=== PATIENT | male | born 1975 | race Caucasian/White ===

== ENCOUNTER 2017-09-05 20:16 | Emergency (ER) | payer OTHER, SELFPAY ==
[2017-09-05 20:19] VITALS: BP 183/115; PULSE 93; RESP 17; TEMP 37.2; O2SAT 96; BMI 40.6
--- NOTE | 2017-09-05 20:46 | ED.VISSUMM ---
- ER Visit Summary Date of Service: 09/05/17 Chief Complaint: Right elbow pain History of Present Illness: The patient is a 41 M presenting with right elbow pain. He states this has been bothering him for the past 4-5 weeks. He states approximately a year ago he had an injury at work and was treated for tendinitis. He states it improved. He states that over the past 4-5 weeks he has had a return of his symptoms. He does a lot of lifting and pulling at work. He denies any direct trauma to his elbow. He has been taking Advil at home. Denies other complaints. Physical Examination: Vitals are stable. Patient is afebrile. Alert no acute distress. HEENT exam is unremarkable. Lungs are clear and equal bilaterally. Heart is regular rate and rhythm. Extremities mild right elbow tenderness. No swelling, warmth or erythema. AFROM. NVID. Skin is warm and dry. No focal neurologic deficit. Remainder of exam is unremarkable. Emergency Department Course and Treatment: Patient is given Toradol IM. He is advised to continue NSAIDs at home. He is given information to follow-up with [facility]. Advised return ED if worsening complaints. Disposition: Discharged home Impression: Right elbow strain This note was generated with [employer] dictation software. It may contain incorrect words, spelling, and punctuation that were not noted in review of the chart prior to signing ED Disposition - Plan for ED Patient: Chief Complaint: Upper Extremity Injury Referrals: Care Physician,No Primary [Primary Care Provider] -
--- NOTE | 2017-09-05 20:49 | ED.DEP ---
ED Disposition - Plan for ED Patient: Chief Complaint: Upper Extremity Injury Instructions: ED Sprain Elbow Referrals: Care Physician,No Primary [Primary Care Provider] - Lou Giang DO [STAFF PHYSICIAN] - [facility] [GROUP OF PHYSICIANS] -
[2017-09-05] MEDS: Ketorolac 60 MG/2 ML Vial IM (21:17)
[2017-09-05 21:45] VITALS: BP 152/117; PULSE 81; RESP 16
== END 2017-09-05 21:46 | disposition home or self-care (01) ==
LOC: ED 20:51
PROVIDERS: Emergency Provider Emergency Medicine
DX: S56.911A Strain of unspecified muscles, fascia and tendons at forearm level, right arm, initial encounter (principal); X58.XXXA Exposure to other specified factors, initial encounter; Y93.9 Activity, unspecified; Y92.9 Unspecified place or not applicable
CPT/HCPCS: 96372; 99283

== ENCOUNTER → 2017-10-23 11:49 | Outpatient (CLI) | payer OTHER, SELFPAY ==
--- NOTE | 2017-10-23 12:12 | EKG12_ITS ---
Test Reason : PRE-OP Blood Pressure : / mmHG Vent. Rate : 072 BPM Atrial Rate : 072 BPM P-R Int : 152 ms QRS Dur : 092 ms QT Int : 400 ms P-R-T Axes : 046 -04 034 degrees QTc Int : 438 ms Normal sinus rhythm Normal ECG Confirmed by JUAN A TUCKER ([id number]), news editor SHANT SANDERS ([id number]) on 11/04/2017 4:50:30 PM Referred By: Harper Cramer Confirmed By:JUAN A TUCKER
[2017-10-23 13:05] LABS: Hematocrit 44.3 % (40-54); Hemoglobin 14.7 g/dl (13.0-16.5); Mean Corp Hgb Conc 33.2 g/gl (32-36); Mean Corpuscular Hgb 30.1 pg (27.0-32.0); Mean Corpuscular Volume 90.6 fL (80-94); Mean Platelet Vol. 10.4 fl (6.2-12.0); Platelet Count 275 K/mm3 (150-450); RBC Distribution Width CV 12.9 % (11.6-14.6); RBC Distribution Width SD 42.6 fl (35.1-43.9); Red Blood Count 4.89 M/mm3 (4.6-6.2); White Blood Count 7.6 K/mm3 (4.4-11.0)
[2017-10-23 13:08] LABS: Scan Indicated on CBC? Y/N NO
[2017-10-23 13:24] LABS: Anion Gap 9 (5-15); BUN 13 mg/dL (7-18); BUN/Creat Ratio 14.1 RATIO (10-20); Calcium,Total 8.5 mg/dL (8.5-10.1); Chloride 103 mmol/L (98-107); Creatinine, Serum 0.92 mg/dL (0.70-1.30); EST Glomerular Filtration Rate 95 mL/min (>60); Est Glom Filt Rate - Afr Amer 115 mL/min (>60); Glucose 147 mg/dL (74-106); Potassium 4.1 mmol/L (3.5-5.1); Sodium Level 141 mmol/L (136-145)
== END ==
PROVIDERS: Visit Provider Orthopaedic Surgery
DX: Z01.818 Encounter for other preprocedural examination (principal); I10 Essential (primary) hypertension
CPT/HCPCS: 36415; 80048; 85027; 93005

== ENCOUNTER → 2017-11-04 16:24 | Outpatient (CLI) | payer BC, SELFPAY ==
--- NOTE | 2017-11-01 14:24 | DEB_PTH ---
PATIENT: TESSIE MCGREGOR LOC: [facility]#:[id number] AGE/SX: 49/M ROOM: RE11/04/[address]: Iain Paul MD : 1975 BED: DIS: SPEC #: [id number] RECD: 11/04/17 15:25 STATUS: TRACI WARD #: [id number] ANDREW: 11/01/17 14:[address]: Iain Paul DEPT: SURGICAL PATHOLOGY RECD BY: Nixon Patel ENTERED: 11/05/17 08:23 SP TYPE: EYAD SILVA DR: No Primary Care Phys WAS Tissues: Elbow, NOS Procedures: Surgery Specimen Level III HEADER OPERATION: Lateral epicondylar release and debridement and repair, right elbow PRE-OP DIAGNOSIS: Lateral epicondyle, right elbow and chronic lateral epicondylitis TISSUE SUBMITTED: Aponeurosis of lateral epicondyle, right MICROSCOPIC DIAGNOSIS Aponeurosis of lateral epicondyle, right: Fragments of dense fibroconnective tissue with reactive changes. CANDELARIO:kam 11/06/17 MICROSCOPIC DESCRIPTION Slides are reviewed. GROSS DESCRIPTION Received is one container labeled with the patient's name and not further designated. The specimen consists of multiple pieces of bell soft tissue that in aggregate measure 1.5 x 1 x 0.2 cm. The entire specimen is submitted in one cassette. / CANDELARIO:kam 11/05/17 TC:5 CPT: 04607
--- NOTE | 2017-11-04 16:24 | DT_ITS ---
This patient was seen during an EMR downtime October 28, 2017 - November 04, 2017. This patient may have a combination of paper and electronic documentation or all paper documentation. All documentation is viewable within the e-chart portion of [facility] for each patient visit.
== END ==
PROVIDERS: Visit Provider Orthopaedic Surgery
DX: M77.11 Lateral epicondylitis, right elbow (principal)
CPT/HCPCS: 88304

== ENCOUNTER 2017-12-04 19:03 | Emergency (ER) | payer OTHER, BC, SELFPAY ==
[2017-12-04 19:03] VITALS: BP 158/101; PULSE 83; RESP 14; TEMP 36.9; O2SAT 98; BMI 41.5
--- NOTE | 2017-12-04 19:38 | ED.VISSUMM ---
- ER Visit Summary Date of Service: 12/04/17 Chief Complaint: Right index finger laceration History of Present Illness: The patient is a 42 M presenting with laceration to his right index finger. This occurred at work. He states his right index finger was accidentally cut with a piece of metal. His tetanus is up-to-date. Denies other injuries. Physical Examination: Vitals are stable. Patient is afebrile. Alert no acute distress. HEENT exam is unremarkable. Lungs are clear and equal bilaterally. Heart is regular rate and rhythm. Extremities 2 cm laceration to the right proximal, lateral index finger, tendon function is intact, normal cap refill Skin is warm and dry. No focal neurologic deficit. Remainder of exam is unremarkable. Emergency Department Course and Treatment: Laceration was repaired under sterile conditions. Irrigated with saline. Anesthetized with lidocaine. 4, 5-0 simple sutures were placed. Patient tolerated this well. Advised to follow-up with [facility]. Advised return to ED if worsening complaints. Disposition: Discharge home Impression: Right index finger laceration, laceration repair This note was generated with [employer] dictation software. It may contain incorrect words, spelling, and punctuation that were not noted in review of the chart prior to signing ED Disposition - Plan for ED Patient: Chief Complaint: Laceration Instructions: ED Laceration All Referrals: [facility] [GROUP OF PHYSICIANS] - Care Physician,No Primary [NON-STAFF] -
--- NOTE | 2017-12-04 21:15 | ED.DEP ---
ED Disposition - Plan for ED Patient: Chief Complaint: Laceration Instructions: ED Laceration All Referrals: Care Physician,No Primary [NON-STAFF] - [facility] [GROUP OF PHYSICIANS] -
[2017-12-04 21:27] VITALS: BP 173/98; PULSE 80; RESP 18; O2SAT 98
== END 2017-12-04 21:35 | disposition home or self-care (01) ==
PROVIDERS: Emergency Provider Emergency Medicine; Family Provider Nurse Practitioner; PCP Nurse Practitioner
DX: S61.210A Laceration without foreign body of right index finger without damage to nail, initial encounter (principal); W26.9XXA Contact with unspecified sharp object(s), initial encounter; Y93.89 Activity, other specified; Y92.89 Other specified places as the place of occurrence of the external cause; Y99.0 Civilian activity done for income or pay
CPT/HCPCS: 12001; 99282

== ENCOUNTER 2019-03-18 23:21 | Emergency (ER) | payer BC, SELFPAY ==
[2019-03-18 23:22] VITALS: BP 178/115; PULSE 79; RESP 16; TEMP 37.4; O2SAT 98; BMI 43.0
--- NOTE | 2019-03-18 23:31 | RAD_ITS ---
STUDY: X-RAY - LEFT ANKLE REASON FOR EXAM: Male, 43 years old. Pain. TECHNIQUE: 3 view(s) of the ankle. COMPARISON: None. FINDINGS: Normal visualized distal tibia and fibula. Normal medial and lateral malleoli. Normal tibiotalar articulation and ankle mortise. Normal visualized talus. There is os trigonum. There is plantar spur of the calcaneus. The visualized subtalar, talonavicular, calcaneocuboid and tarsal articulations are normal. There is no demonstrated fracture. The soft tissue structures are unremarkable. RAD/Ankle min 3 Views IMPRESSION: No acute fracture. Electronically Signed: Juan Lucio MD at 23:46 EDT , Service support ,
--- NOTE | 2019-03-18 23:53 | ED.DCSUM_ITS ---
History of Present Illness Chief Complaint: Lower Extremity Injury Detail of Chief Complaint: Left ankle injury Informant: Patient Onset: Today Current Severity: Mild Maximum Severity: Moderate Narrative: Patient presents for evaluation of left ankle injury. He states when he was leaving for work earlier today he rolled his left ankle on the edge of a curb. 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 He presents with continued pain and swelling to the lateral portion of his left ankle. Patient does have a history of hypertension. He states he has been out of his blood pressure medication for some time. He is switching pharmacy companies that supply his meds in 90-day increments. He is try to get back into his PCP to get a new prescription. Past Medical History - Allergies and Home Meds Allergies/Adverse Reactions: Allergies No Known Allergies Allergy (Verified 03/18/19 23:27) Primary Care Physician: Emily Marmolejo NP-C [Primary Care Provider] - Prior records reviewed: Yes Past Medical History: - - Reviewed Lives: Spouse/ Significant Other Smoking Status: Never smoker Review of Systems General: Denies: Chills, Fever Eyes: Denies: Visual changes - bilaterally ENT: Denies: Bilateral ear pain Cardiovascular: Denies: Chest pain Respiratory: Denies: Dyspnea Gastrointestinal: Denies: Abdominal pain Musculoskeletal: Reports: Extremity Pain - Lateral left ankle pain Skin: Denies: Rash, Wounds Neurological: Denies: Headache Physical Exam Vital Signs/Narrative: Vital Signs Temp Pulse Resp BP Pulse Ox 03/18/19 23:22 99.3 F H 79 16 178/115 H 98 Inital Vital Signs reviewed: Yes General: Well nourished, Well developed Head: Normocephalic ENT: Moist mucous membranes Cardiovascular: Regular rate, Regular rhythm Respiratory: No distress, CTA bilaterally Abdomen: Soft, Nontender Extremities: - - Mild tenderness palpation and edema of the lateral malleolus of the left ankle. No medial tenderness. No tenderness of the proximal fibula. Strong distal pulses and normal cap refill. Skin: Normal color Neurological: Alert, Oriented x3, Normal Strength, Normal Sensation Psychological: Normal affect Diagnostic/Tx/Re-eval Impressions Ankle X-Ray 03/18/19 23:31 IMPRESSION: No acute fracture. Electronically Signed: Juan Lucio MD at 23:46 EDT , Service support , 03/18/19 23:31 XRAY Ankle [Ankle min 3 Views] [RAD] Stat - Medical Decision Making Patient is given a dose of naproxen here for pain will be given an air splint. I will write the patient a 30-day supply of his blood pressure medication to cover him until he get back in to see his PCP for 90-day prescription. ED Disposition - Plan for ED Patient: Disposition: Home or Assisted Living Diagnosis: Ankle sprain, Hypertension Instructions: Sprain, Ankle, with X-Ray, HYPERTENSION, Established Prescriptions: Naproxen [Naprosyn] 500 mg PO BID PRN PRN #20 tablet PRN Reason: Pain Score 1-10/10 Valsartan 80 mg PO DAILY #30 tablet Referrals: Emily Marmolejo, TRAFFIC CONTROLLER CABLE-C [Primary Care Provider] - 1 Week
[2019-03-19] MEDS: Losartan Potassium 25 MG Tablet PO (00:05)
[2019-03-19] MEDS: Naproxen 500 MG Tablet PO (00:05)
[2019-03-19 00:15] VITALS: BP 163/105
== END 2019-03-19 00:16 | disposition home or self-care (01) ==
LOC: ED 03-19 00:08
PROVIDERS: Emergency Provider Emergency Medicine; Family Provider Nurse Practitioner; PCP Nurse Practitioner
DX: S99.912A Unspecified injury of left ankle, initial encounter (principal); X50.1XXA Overexertion from prolonged static or awkward postures, initial encounter; Y93.9 Activity, unspecified; Y92.480 Sidewalk as the place of occurrence of the external cause; Y99.9 Unspecified external cause status; I10 Essential (primary) hypertension
CPT/HCPCS: 73610; 99283

== ENCOUNTER 2021-02-07 19:38 | Emergency (ER) | payer OTHER, BC, SELFPAY ==
[2021-02-07 19:40] VITALS: BP 190/121; PULSE 93; RESP 18; TEMP 36.1; O2SAT 98; BMI 39.5
--- NOTE | 2021-02-07 20:40 | RAD_ITS ---
STUDY: X-RAY - LEFT RADIUS AND ULNA REASON FOR EXAM: Male, 45 years old. Pain TECHNIQUE: 2 view(s) of the forearm. COMPARISON: None. FINDINGS: There is no demonstrated soft tissue swelling. Normal visualized radius. Normal visualized ulna. RAD/Forearm 2 Views IMPRESSION: Normal x-ray examination of the radius and ulna. Electronically Signed: Sae Moura DO at 21:32 EDT Tel [phone], Service support ,
--- NOTE | 2021-02-07 20:58 | EX.ED.UPPERE ---
HPI History of Present Illness Chief Complaint: Upper Extremity Injury Detail of Chief Complaint: Pain to left forearm that started around 6:30 PM Informant: patient Narrative Narrative: Patient presents to the emergency department from work with complaint of pain to his left forearm. 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 Patient started having pain in the forearm with paresthesias in the fingertips of all the fingers. He is never had this happen before. Patient states the pain is intermittent and sharp. Currently rates it a 5 out of 10. He denies any direct trauma. He is never had this happen before. Patient has had prior carpal tunnel surgery on his right arm. Patient also states that he has a history of high blood pressure and does not take blood pressure medicine and has not for some time. Patient denies headache or chest pain or shortness of breath. Patient does not remember what blood pressure medicine he was on. PFSH PFS Home Medications naproxen 500 mg PO BID PRN PRN #20 tab 03/18/19 [Rx Last Taken Unknown] valsartan 80 mg PO DAILY #30 tab 03/18/19 [Rx Last Taken Unknown] amlodipine [Norvasc] 5 mg PO DAILY #30 tab 02/07/21 [Rx Last Taken Unknown] naproxen 500 mg PO BID #14 tab 02/07/21 [Rx Last Taken Unknown] Allergy/AdvReac Type Severity Reaction Status Date / Time No Known Allergies Allergy Verified 02/07/21 19:39 Social History Smoking Status: Never smoker ROS [facility] ED Constitutional Constitutional ED: Reports systems reviewed and no addt'l complaints, except as documented; Denies body ache(s), change in weight or chills Eyes Eyes: Denies acute decrease in peripheral vision, change in vision, double vision or loss of vision ENT ENT ED: Reports none; Denies ear pain, lip swelling, loss taste/smell, neck pain, otalgia or sore throat Cardiovascular Cardiovascular: Reports none; Denies abdominal pain, chest pain with activity, leg edema, lightheadedness, palpitations, rapid heart rate or syncope Respiratory/Chest Respiratory/Chest: Reports none; Denies change in mental status, dry cough, dyspnea, hemoptysis, shortness of breath at rest or shortness of breath with exertion Gastrointestinal Gastrointestinal: Reports none; Denies abdominal pain, change in stool character, diarrhea, hematemesis, hematochezia, melena, rectal bleeding or vomiting Genitourinary Genitourinary ED: Reports none; Denies abdominal discomfort, anuria, dysuria, genital pain or polyuria Musculoskeletal Musculoskeletal: Reports none and other Details: Left forearm pain ; Denies arthralgias, back pain, difficulty walking, extremity pain, muscle weakness or myalgias Integumentary Reports none; Denies abscess or rash Neurologic Neurologic: Reports none; Denies abnormal gait, confusion, focal weakness, frequent falls, headache(s), loss of vision, numbness, paresthesias, radicular pain, vertigo or weakness Psychiatric Psychiatric: Reports systems reviewed and no addt'l complaints, except as documented and none; Denies behavioral changes, confusion, difficulty concentrating, hallucinations, suicidal ideation, tactile hallucinations or visual hallucinations Endocrine Endocrinology: Denies none, cold intolerance, excessive sweating, fatigue or heat intolerance Hematologic/Lymphatic Hematologic/Lymphatic: Reports none; Denies anemia, easy bleeding or easy bruising Allergic/Immunologic Allergic/Immunologic ED: Denies as per HPI, none, lip swelling, mouth swelling, throat swelling, tongue swelling or hives EXAM Physical Exam Const Vital Signs: 02/07/21 19:40 Temperature 97.0 F L Temperature Source Temporal Pulse Rate 93 Respiratory Rate 18 Blood Pressure 190/121 H Blood Pressure Mean 144 Pulse Ox 98 Oxygen Delivery Method Room Air Positive well nourished and well developed General Appearance ED: well developed and NAD HEENT Reports TM's clear and moist mucous membranes normocephalic and atraumatic; Negative for trauma or tenderness Tympanic Membrane ED: Yes TM's clear Eyes PERRL and EOMs intact bilaterally General Eye ED: Negative for pale conjunctiva or scleral icterus Neck no lymphadenopathy, supple and no JVD General: Negative for tenderness Chest Wall inspection of chest normal and palpation of chest normal Chest: Negative for tenderness Resp normal respiratory effort and clear to auscultation bilaterally Effort and Inspection: Negative for respiratory distress or pain with movement Auscultation: Negative for rhonchi, wheezes or diminished lung sounds Cardio regular rate, regular rhythm, S1 normal heart sound, S2 normal heart sound and no murmurs Peripheral Pulses: pulses 2+ throughout GI normal to inspection, nondistended, normoactive bowel sounds, soft to palpation, non-tender, non-distended and no masses Back/Spine no CVA tenderness and no thoracic nor lumbar tenderness Extremity Extremity Narrative: Evaluation of the left forearm reveals no evidence of trauma. There is no ecchymosis or bruising or soft tissue swelling. Patient does have some tenderness to palpation over the musculature of the medial portion of the forearm proximally. Patient has normal pulses radial and ulnar. Patient has normal range of motion of all digits. Patient has normal strength. General Extremety ED: Negative for edema General Extremity: Negative for edema Neuro oriented x3, CN's II-XII intact bilaterally, no sensory deficits noted and gait normal Sensorium / Orientation: awake, alert, oriented to person, oriented to place and oriented to time Motor Exam: strength 5/5 throughout and strength abnormal Psych mental status grossly normal Skin no rashes or lesions noted and no wounds MDM MDM MDM Narrative Medical decision making narrative: Etiology of patient's pain unclear although I suspect may be from overuse injury and related to muscle strain of the forearm. Patient will be started on naproxen. I will start patient on Norvasc 5 mg daily and refer to primary care physician for follow-up regarding his blood pressures. Patient will be referred to corporate care regarding the forearms overuse injury and will be given work restrictions. Discharge Plan Triage Chief Complaint: Upper Extremity Injury ED Provider: Simón Watts Dx/Rx/DC Orders Clinical Impression: Forearm strain, Hypertension Instructions: Controlling High Blood Pressure, Blood Pressure Check Steps, ED Hypertension, Established, ED Muscle Strain, Extremity Prescriptions: New naproxen 500 MG tablet 500 mg PO BID Qty: 14 RF: 0 amlodipine [Norvasc] 5 mg tablet 5 mg PO DAILY Qty: 30 RF: 0 No Action naproxen 500 MG tablet 500 mg PO BID PRN PRN (Reason: Pain Score 1-10/10) Qty: 20 RF: 0 valsartan 80 MG tablet 80 mg PO DAILY Qty: 30 RF: 0 Primary Care Provider: Care Physician,No Primary Referrals: Corporate,Care [GROUP OF PHYSICIANS] - 3-5 Days Emily Marmolejo WORLD LANGUAGE TEACHER, WORLD LANGUAGE TEACHER-C [NON-STAFF] - 3-5 Days Disposition Disposition: Home, Self Care
[2021-02-07 21:49] VITALS: BP 185/114; PULSE 86; RESP 16; O2SAT 97
== END 2021-02-07 21:49 | disposition home or self-care (01) ==
PROVIDERS: Emergency Provider Emergency Medicine
DX: S56.912A Strain of unspecified muscles, fascia and tendons at forearm level, left arm, initial encounter (principal); I10 Essential (primary) hypertension; X50.3XXA Overexertion from repetitive movements, initial encounter; Y93.89 Activity, other specified; Y92.89 Other specified places as the place of occurrence of the external cause; Y99.0 Civilian activity done for income or pay
CPT/HCPCS: 73090; 99282

== ENCOUNTER 2023-02-28 06:54 | Emergency (ER) | payer SELFPAY ==
[2023-02-28 06:56] VITALS: BP 174/101; PULSE 79; RESP 18; TEMP 36.7; O2SAT 98; BMI 40.6
--- NOTE | 2023-02-28 07:06 | ED.VIS.BACK ---
HPI History of Present Illness Chief Complaint: Back [facility] Medical History (Updated 09/25/22 @ 12:46 by MANOJ Ma) Asthma HTN (hypertension) Left hand paresthesia Left hand paresthesia Left hand paresthesia Strain of left forearm Strain of left forearm Home Medications lisinopril 20 mg tablet 20 mg PO DAILY 02/28/23 [History Last Taken Unknown] oxycodone-acetaminophen 5 mg-325 mg tablet 1 tab PO Q6H 02/28/23 [History Last Taken Unknown] prednisone 50 mg tablet 50 mg PO DAILY #5 tabs 02/28/23 [Rx Last Taken Unknown] sumatriptan succinate 25 mg tablet 25 mg PO PRN 02/28/23 [History Last Taken Unknown] Allergy/AdvReac Type Severity Reaction Status Date / Time Penicillins Allergy Mild Rash Verified 02/28/23 07:07 insect venom Allergy Swelling Verified 02/28/23 07:07 Surgical History History of carpal tunnel release History of knee surgery S/P tendon repair Social History Smoking Status: Never smoker Smokeless tobacco user: snuff EXAM Physical Exam Const Vital Signs: 02/28/23 06:56 Temperature 98.0 F Temperature Source Oral Pulse Rate 79 Respiratory Rate 18 Blood Pressure 174/101 H Blood Pressure Mean 125 Pulse Ox 98 Oxygen Delivery Method Room Air [facility] MDM Narrative Medical decision making narrative: HISTORY OF PRESENT ILLNESS: 47-year-old male presents with back pain. Notes he has low back pain but does not radiate. He does not endorse any trauma. States he gets this occasionally flares up once or twice a year. Denies any inciting event that he is aware of. Patient denies any saddle anesthesia, urinary tension, bowel or bladder incontinence, lower extremity weakness, fever or IV drug use, no recent spinal manipulation or surgery, no recent urinary catheterization. REVIEW OF SYSTEMS: All other systems reviewed and are negative except as noted in the history of present illness. At least 10 review of systems reviewed and are negative except as noted in history of present illness. PHYSICAL EXAM: Nursing triage notes reviewed, Vital signs reviewed Constitutional: please see mdm Lungs: Clear to auscultation, No wheezing or rales. No increased work of breathing, no conversational dyspnea, no accessory muscle use, no nasal flaring. No respiratory distress noted Heart: Regular rate and rhythm, No murmurs, No rubs and No gallops, 2+ distal pulses (radial, femoral, posterior tibial) in all extremities : No CVAT Back: No midline step-offs or deformities Neuro: Intact sensation L1-S1 dermatomal distributions. Intact 5/5 strength in hip flexion (T12-L3). Knee extension (L2-L4). Ankle dorsiflexion (L4-L5). Ankle plantar flexion (S1). Great toe extension (L5). 2+ patellar and Achilles DTRs. Skin: No rash or lesions noted MEDICAL DECISION MAKING: Chief Complaint: Back pain External records reviewed: Imaging studies reviewed: No recent Morales imaging of the axial skeleton Factors affecting care: Hypertension Social determinants of health: No IV drug use History obtained from others: none Consults: none ALL IMAGES (IF OBTAINED) HAVE BEEN PERSONALLY REVIEWED AND INTERPRETED BY MYSELF. MDM Narrative: Patient was initially mildly hypertensive otherwise hemodynamically stable, afebrile, nontoxic-appearing. I considered the following differential diagnosis: Musculoskeletal back pain, space-occupying lesion of the spinal (epidural abscess, epidural hematoma), cauda equina, conus medullaris, fracture dislocation, AAA, nephrolithiasis, pyelonephritis, aortic dissection The patient presented complaining of back pain. There was no history of recent fall or trauma. There was no evidence to support genitourinary etiology. There is also no evidence to suggest vascular pathology such as AAA dissection. No fevers or other evidence to suspect infectious processes, abscess, osteomyelitis etc. The patient?s neurological exam is normal with normal motor and sensory. There is no saddle paresthesias reported and no bowel or bladder incontinence or retention. I suspect the pain is mechanical in nature. Clinical suspicion, plan of care and management was discussed with the patient. The patient was instructed to follow up with their health care provider. The patient was also instructed to return if the pain worsened, changed, or developed weakness or bowel or bladder trouble. The patient agreed with plan. I completed a structured, evidence-based clinical evaluation to screen for acute non-traumatic spinal emergencies. The patient has a normal detailed neurologic exam and red flag historical factors were negative. The evidence indicates that the patient is very low risk for an acute spinal emergency and this is consistent with my clinical intuition. The risk of further workup is higher than the likelihood of the patient having a spinal epidural abscess or other dangerous emergency spinal condition. It is, therefore, in the patient?s best interest not to do additional emergent testing at this time. Shared Decision-Making I have discussed with the patient my clinical impression and the result of an evidence-based clinical evaluation to screen for spinal epidural abscess and other spinal emergencies, as well as the risk of further testing and hospitalization. The evidence shows that the risk for an acute spinal emergency is less than 1%. Although the risk of an acute spinal emergency has not been completely eliminated, the risks of further testing likely exceed any potential benefit, and the patient agrees with not pursuing further emergent evaluation for causes of back pain at this time. The patient and/or family, caregivers express understanding. The patient and/or family, caregivers agrees with the plan. Total critical care time today provided was at least 0 minutes. This excludes separately billable procedures. Critical care time (if documented) is secondary to the patient having high probability of clinically significant/life threatening deterioration in the patient's condition which required my urgent intervention. Impression: 1. Back pain Disposition: Discharge Owen Patterson DO Discharge Plan Triage Chief Complaint: Back ED Provider: Owen Patterson Dx/Rx/DC Orders Instructions: ED Back Exercises, Lumbar, ED Back Pain (Acute or Chronic) Prescriptions: New prednisone 50 mg tablet 50 mg PO DAILY Qty: 5 0RF No Action lisinopril 20 mg tablet 20 mg PO DAILY Patient Comments: TAKE 1 TABLET BY MOUTH ONCE DAILY sumatriptan succinate 25 mg tablet 25 mg PO PRN Patient Comments: TAKE 1 TABLET BY MOUTH NEEDED AT THE FIRST SIGN OF A HEADACHE. MAY REPEAT ONCE IN 2 HOURS IF NO RELIEF oxycodone-acetaminophen 5-325 mg tablet 1 tab PO Q6H Stand Alone Forms: ED Work / School Excuse Primary Care Provider: Care Physician,No Primary Referrals: Madi Almonte MD [Med Staff - Active Staff] - Activity Restrictions/Additional Instructions: Thank you for trusting us with your care today! Please take Tylenol (2 pills, 650 mg), ibuprofen (2 pills, 400 mg) every 6 hours as needed for pain and fever control. Please begin taking prednisone as prescribed. Please go to your local pharmacy or drugstore and obtain Salonpas lidocaine patches and apply these topically for additional pain relief. Please return to the emergency department if your symptoms change or worsen. Specifically if you develop bowel or bladder incontinence, urinary retention, loss of sensation on your private parts, loss of ability to move or feel your legs. Please follow with your primary care physician for further outpatient evaluation and management. Disposition Disposition: Home, Self Care
[2023-02-28] MEDS: predniSONE 20 MG Tablet 40 MG PO (07:47)
[2023-02-28] MEDS: Ibuprofen 200 MG Tablet 400 MG PO (07:47)
[2023-02-28] MEDS: Oxycodone/Apap 5/325 Tablet PO (07:48)
[2023-02-28] MEDS: Lidocaine 5% Patch 1 PATCH TOPICAL (07:48)
[2023-02-28 07:58] VITALS: BP 139/88; PULSE 72; RESP 16; O2SAT 99
== END 2023-02-28 07:59 | disposition home or self-care (01) ==
PROVIDERS: Emergency Provider Emergency Medicine; Visit Provider Emergency Medicine
DX: M54.50 Low back pain, unspecified (principal); I10 Essential (primary) hypertension; J45.909 Unspecified asthma, uncomplicated; Z79.899 Other long term (current) drug therapy; Z79.52 Long term (current) use of systemic steroids
CPT/HCPCS: 99283

== ENCOUNTER 2024-03-27 18:46 | Emergency (ER) | payer BC, SELFPAY ==
[2024-03-27 18:47] VITALS: BP 173/107; PULSE 89; RESP 18; TEMP 36.4; O2SAT 97; BMI 39.9
--- NOTE | 2024-03-27 18:50 | RAD_ITS ---
STUDY: X-RAY - LEFT WRIST REASON FOR EXAM: Male, 48 years old. Fall TECHNIQUE: 3 view(s) of the wrist were obtained. COMPARISON: None. FINDINGS: Normal visualized distal radius and ulna. Normal radiocarpal articulation. Normal distal radioulnar articulation. Normal carpal bones. Normal carpal articulations. Normal carpometacarpal articulation of the thumb. Normal second through fifth carpometacarpal articulations. Normal visualized metacarpal bones. The soft tissue structures are unremarkable. RAD/Wrist min 3 Views IMPRESSION: Normal x-ray examination of the wrist. Electronically Signed: Ignacio Bae MD at 20:14 EDT ,
--- NOTE | 2024-03-27 19:00 | RAD_ITS ---
STUDY: X-RAY - RIGHT ANKLE REASON FOR EXAM: Male, 48 years old. Fall TECHNIQUE: 3 view(s) of the ankle. COMPARISON: None. FINDINGS: Normal visualized distal tibia and fibula. Normal medial and lateral malleoli. Normal tibiotalar articulation and ankle mortise. Normal visualized talus. Tiny plantar calcaneal spur The visualized subtalar, talonavicular, calcaneocuboid and tarsal articulations are normal. The soft tissue structures are unremarkable. RAD/Ankle min 3 Views IMPRESSION: No acute fracture or dislocation. Electronically Signed: Ignacio Bae MD at 20:15 EDT ,
--- NOTE | 2024-03-27 22:42 | EX.ED.GENINJ ---
HPI History of Present Illness Chief Complaint: Fall Narrative Narrative: Patient is a 48 year old male with history of hypertension and depression presenting from home for evaluation after traumatic injuries. Patient states this morning 11 AM he was walking across the street on uneven driveway when he rolled his right ankle. He tried to catch himself but ultimately still fell. He then landed on his left wrist and left knee as well as his right palm. He states his arm went into his left ribs. States he went to work. Has not take anything for pain. Denies any in his head. Not on any blood thinners. [facility] Medical History Depression Left hand paresthesia Strain of left forearm Asthma HTN (hypertension) Left hand paresthesia Left hand paresthesia Strain of left forearm Home Medications ?Medication ?Instructions ?Recorded ?Last Taken ?Type lisinopril 20 mg tablet 20 mg PO DAILY 02/28/23 Unknown History oxycodone-acetaminophen 5 mg-325 1 tab PO Q6H 02/28/23 Unknown History mg tablet prednisone 50 mg tablet 50 mg PO DAILY #5 tabs 02/28/23 Unknown Rx sumatriptan succinate 25 mg tablet 25 mg PO PRN 02/28/23 Unknown History ibuprofen 600 mg tablet 600 mg PO Q6H PRN pain #20 tabs 03/27/24 Unknown Rx Allergy/AdvReac Type Severity Reaction Status Date / Time Penicillins Allergy Mild Rash Verified 02/28/23 07:07 sertraline (From Zoloft) Allergy Mild Hives Verified 03/27/24 18:49 insect venom Allergy Swelling Verified 02/28/23 07:07 Surgical History History of knee surgery S/P tendon repair History of carpal tunnel release Social History Smoking Status: Never smoker Smokeless tobacco user: snuff ROS ROS ED Constitutional Constitutional ED: Denies chills or fever(s) Eyes Eyes: Denies change in vision Cardiovascular Cardiovascular: Reports other Details: left sided rib pain Respiratory/Chest Respiratory/Chest: Denies cough or dyspnea Gastrointestinal Gastrointestinal: Denies nausea or vomiting Musculoskeletal Musculoskeletal: Reports arthralgias; Denies back pain or neck pain Integumentary Reports Abrasions; Denies rash Neurologic Neurologic: Denies headache(s), paresthesias or weakness Hematologic/Lymphatic Hematologic/Lymphatic: Denies easy bleeding or easy bruising EXAM Physical Exam Const Vital Signs: 03/27/24 18:47 03/27/24 20:46 Temperature 97.6 F L Temperature Source Temporal Pulse Rate 89 Respiratory Rate 18 Respiratory Effort Normal Non-Labored Blood Pressure 173/107 H Blood Pressure Mean 129 Pulse Ox 97 Oxygen Delivery Method Room Air Room Air Positive well nourished and well developed General Appearance ED: well developed and NAD HEENT atraumatic Eyes PERRL Neck full ROM General: Negative for tenderness Chest Wall inspection of chest normal and palpation of chest normal Chest Narrative: No chest wall crepitus. Only mild tenderness to palpation of the left ribs at approximately ribs 7 through 9, lateral and anterior aspect Resp normal respiratory effort and clear to auscultation bilaterally Effort and Inspection: Negative for pain with movement Cardio regular rhythm and no murmurs Rate: regular rate GI normal to inspection, nondistended, normoactive bowel sounds and non-tender Back/Spine normal to inspection and no thoracic nor lumbar tenderness Extremity Extremity Narrative: No obvious deformity or edema of the extremities or joints. Mild tenderness palpation of the left wrist over the distal radius. There is some mild snuffbox tenderness. No significant pain with axial loading. Normal range of motion of the hand and wrist. Normal range of motion of the bilateral hips. Pelvis is stable. Mild tenderness palpation of the right lateral ankle. Normal Solares test. Mild associated soft tissue swelling noted of the right ankle. Normal DP and radial pulses present. General Extremety ED: Negative for deformity or edema General Extremity: Negative for deformity or edema Neuro oriented x3, moves all extremities, no focal motor deficits and no sensory deficits noted Psych mental status grossly normal Skin Skin Narrative: Scattered superficial abrasions of the left palm and left knee. No active bleeding. MDM MDM MDM Narrative Medical decision making narrative: Patient evaluated for injuries after mechanical fall. He did not his head. Vital signs significant for hypertension however patient has a history of hypertension. Protocol x-ray of the right ankle and left wrist were obtained. These reviewed by myself as well as radiology do not show any acute fractures. Patient does have some very mild tenderness of the left ribs but below suspicion for rib fracture. Patient comfortable with deferring rib series at this time. Patient given dose of Motrin emergency room. Is given a air stirrup for his suspected right ankle sprain. In addition he does have some mild tenderness of the left wrist in the area of the scaphoid. Out of abundance of caution we will place him in a thumb spica splint. Patient is given outpatient Ortho follow-up. Counseled the risk of occult scaphoid fracture need for repeat x-ray in 7 to 10 days. Wall today ibuprofen Tylenol for pain. Given return precautions. Discharged home in stable condition. Is given a work note for today and tomorrow as needed. Radiography Diagnostic Testing: Clinical Impression(s) from Imaging Studies Wrist X-Ray 03/27/24 18:50 IMPRESSION: Normal x-ray examination of the wrist. Electronically Signed: Ignacio Bae MD at 20:14 EDT , Ankle X-Ray 03/27/24 19:00 IMPRESSION: No acute fracture or dislocation. Electronically Signed: Ignacio Bae MD at 20:15 EDT , Discharge Plan Triage Chief Complaint: Fall ED Provider: Barbi Soto Dx/Rx/DC Orders Clinical Impression: Right ankle sprain, Injury of left wrist, Fall, Abrasion hand, Abrasion of knee, left, Contusion of left chest wall Instructions: ED Chest Wall Contusion, ED Mechanical Fall, ED Wrist Splint, Velcro, ED Ankle Sprain (Adult) Prescriptions: New ibuprofen 600 mg tablet 600 mg PO Q6H PRN (Reason: pain) Qty: 20 0RF No Action lisinopril 20 mg tablet 20 mg PO DAILY Patient Comments: TAKE 1 TABLET BY MOUTH ONCE DAILY sumatriptan succinate 25 mg tablet 25 mg PO PRN Patient Comments: TAKE 1 TABLET BY MOUTH NEEDED AT THE FIRST SIGN OF A HEADACHE. MAY REPEAT ONCE IN 2 HOURS IF NO RELIEF oxycodone-acetaminophen 5-325 mg tablet 1 tab PO Q6H prednisone 50 mg tablet 50 mg PO DAILY Qty: 5 0RF Stand Alone Forms: ED Work / School Excuse Primary Care Provider: Ronda Patiño NP Referrals: Malachi García MD [Med Staff - Active Staff] - 1 Week if not improving Ronda Patiño NP, [employer] [Primary Care Provider] - Activity Restrictions/Additional Instructions: Your x-ray did not show any broken bones or dislocations. There is possible that to be a small fracture of your wrist that did not show up on x-ray (called an occult fracture). If still having pain wear the splint and follow-up with orthopedics for repeat x-ray in 7 to 10 days. Alternate ibuprofen and Tylenol for pain. Ice and rest your ankle. Try to elevate it is much as possible. Print Language: Citizen Of [place] Disposition Disposition: Home, Self Care
[2024-03-27] MEDS: Ibuprofen 600 MG Tablet PO (23:14)
== END 2024-03-27 23:18 | disposition home or self-care (01) ==
PROVIDERS: Emergency Provider Emergency Medicine; PCP Nurse Practitioner Family; Visit Provider Emergency Medicine
DX: S93.401A Sprain of unspecified ligament of right ankle, initial encounter (principal); S20.20XA Contusion of thorax, unspecified, initial encounter; S80.212A Abrasion, left knee, initial encounter; I10 Essential (primary) hypertension; S60.512A Abrasion of left hand, initial encounter; J45.909 Unspecified asthma, uncomplicated; W19.XXXA Unspecified fall, initial encounter
CPT/HCPCS: 73110; 73610; 99283